=== PATIENT | female | born 1990 | race Caucasian/White ===

== ENCOUNTER → 2016-12-04 | Outpatient (CLI) | payer BC ==
[~2016-12-04] MED LIST: BCPILLS PO; EFF75 PO; FRRS300 PO; PRENTAB26 PO; VENL150C56 PO
== END | disposition home or self-care (01) ==
LOC: C.LABSPEC 17:57
PROVIDERS: ATTEND Obstetrics & Gynecology
DX: Z34.03 Encounter for supervision of normal first pregnancy, third trimester (principal)

== ENCOUNTER 2016-12-29 03:27 | Inpatient (IN) | payer BC ==
[~2016-12-29] VITALS: Ht 175.3 cm; Wt 92.0 kg
[~2016-12-29 03:27] MED LIST changes: -FRRS300 PO; -PRENTAB26 PO
[2016-12-29 05:00] VITALS: BMI 30.0
[2016-12-29] MEDS ORDERED: PRENTAB26 PO (05:05)
[2016-12-29] MEDS ORDERED: LACTATED RINGER'S 1000ML 1,000 ML IV SCH (06:22)
[2016-12-29] MEDS: LACTATED RINGER'S 1000ML 1,000 ML IV PRN ×2 (06:45→08:00)
[2016-12-29 06:58] LABS: HEMATOCRIT 35.4 % (37-47); MEAN CELL VOLUME 83.1 fL (80-100); MEAN CORPUSCULAR HEMOGLOBIN 29.6 pg (25-34); MEAN CORPUSCULAR HGB CONC 35.6 g/dl (32-36); MEAN PLATELET VOLUME 9.2 fL (7.4-10.4); PLATELET COUNT 219 K/uL (130-400); RED BLOOD COUNT 4.26 M/uL (4.2-5.4); WHITE BLOOD COUNT 16.47 K/uL (4.8-10.8)
[2016-12-29] MEDS ORDERED: BUPIVACAINE 0.25% 30 ML VIAL ONE (07:07)
[2016-12-29] MEDS ORDERED: EpHEDrine SULFATE INJ 50 MG/ML AMP ONE (07:07)
[2016-12-29] MEDS ORDERED: FENTANYL CITRATE INJ 50 MCG/1 ML 2 ML VIAL ONE (07:08)
[2016-12-29] MEDS ORDERED: FENTANYL 2MCG/ML ROPIV 1.25MG/ML 100ML BAG EPI ONE (07:08)
[2016-12-29 07:13] VITALS: Ht 175.3 cm; Wt 92.0 kg
[2016-12-29] MEDS ORDERED: LACTATED RINGER'S 1000ML 500 ML IV PRN (08:22)
[2016-12-29] MEDS ORDERED: EpHEDrine SULFATE INJ 50 MG/ML AMP IV PRN (08:30)
[2016-12-29] MEDS ORDERED: NALOXONE HCL INJ 0.4 MG/1 ML VIAL/CARP IV PRN (08:30)
[2016-12-29] MEDS ORDERED: FENTANYL 2MCG/ML ROPIV 1.25MG/ML 100ML BAG EPI PRN (08:30)
[2016-12-29] MEDS ORDERED: OXYTOCIN 30 UNITS/500ML NSS IV ONE (09:22)
[2016-12-29] MEDS ORDERED: NURSING VERBAL MED ORDER ONE (11:45)
[2016-12-29] MEDS ORDERED: MISOPROSTOL 200 MCG TAB ONE (11:49)
[2016-12-29] MEDS ORDERED: BENZOCAINE 20% AER SPR 82.5 GM CAN EXT PRN (12:00)
[2016-12-29] MEDS ORDERED: MISOPROSTOL 200 MCG TAB PR ONE (12:00)
[2016-12-29] MEDS ORDERED: OXYTOCIN 30 UNITS/500ML NSS IV PRN (12:00)
[2016-12-29] MEDS ORDERED: LANOLIN OINT EXT PRN ×2 (12:00)
[2016-12-29] MEDS ORDERED: ACETAMINOPHEN 325 MG TAB PO PRN (12:00)
[2016-12-29] MEDS ORDERED: SUPERCREAM 0.870 % 15GM JAR EXT PRN (12:00)
[2016-12-29] MEDS ORDERED: CEFAZOLIN SOD 2000 MG in DEXTROSE 5% 50ML IV ONE (12:00)
[2016-12-29] MEDS ORDERED: ACETAMINOPHEN/CODEINE 300/30MG TAB PO PRN ×2 (12:00)
--- NOTE | 2016-12-29 12:17 | DELIVERY SUMMARY ---
DATE OF OPERATION: 12/29/2016 DELIVERY NOTE DATE OF DELIVERY: 12/29/2016. The patient is a 26-year-old 1, P0 white female EDC of 12/29/2016 who presented with ruptured membranes at approximately 0130 hours. She progressed in active labor. She received effective epidural analgesia. She progressed to full dilation and pushed effectively over an intact perineum for a viable male infant, loose nuchal cord was reduced on the perineum. Occult prolapsed cord was noted, a loop of cord was presenting after the head. The rest of the infant delivered without difficulty, was placed on the mother's abdomen for further attention. The had vigorous crying and was moving all four limbs. The cord was then clamped and cut, cord blood was obtained. The placenta was not delivering in a timely fashion. It was manually removed and bleeding afterward was controlled with dilute Pitocin. There continued to be some steady bleeding. The uterus was explored twice and clot was removed. There was no retained placental tissue present. The cervix was examined and found to have no cervical tears. A first degree labial laceration on the right was repaired with 3-0 Vicryl. A first degree perineal laceration was also repaired but with 3-0 chromic in the usual fashion. The patient then received Cytotec 800 mcg because the lochia continued to be moderate. The patient remained stable through this time period. Blood pressure was at 120/60, pulse was 86. She is asymptomatic. Bleeding at this point now has been minimal. Blood loss was 700 mL. I attest to the content of the Intraoperative Record and any orders documented therein. Any exceptio ns are noted below.
[2016-12-29] MEDS ORDERED: CARBOPROST TROMETHAMINE 250 MCG/ML AMP IM ONE (13:15)
[2016-12-29] MEDS ORDERED: CARBOPROST TROMETHAMINE 250 MCG/ML AMP ONE (13:22)
--- NOTE | 2016-12-29 13:35 | Anesthesia Procedure Note ---
Anesthesia Epidural Removal Nt Date & Time Dec 29, 2016 at 13:34 Notes Mental Status: alert / awake / arousable, participated in evaluation Nausea / Vomiting: adequately controlled Pain: adequately controlled Airway Patency, RR, SpO2: stable & adequate BP & HR: stable & adequate Hydration State: stable & adequate Neuraxial Anesthesia: was administered Anesthetic Complications: no major complications apparent, pt satisfied with anesthetic care Epidural: removed without complications, with tip intact
[2016-12-29 15:30] VITALS: BP 129/77; PULSE 84; TEMP 36.6
[2016-12-29] MEDS: IBUPROFEN 600 MG TAB PO PRN ×2 (15:46→21:48)
[2016-12-29 18:20] LABS: HEMATOCRIT 28.7 % (37-47)
[2016-12-29] MEDS: DOCUSATE SODIUM 100 MG CAP PO SCH (20:05)
[2016-12-29 20:10] VITALS: BP 118/75; PULSE 85; TEMP 36.8; O2SAT 99
[2016-12-29 23:30] VITALS: BP 116/67; PULSE 88; TEMP 36.9; O2SAT 98
[2016-12-30 04:05] VITALS: BP 132/74; PULSE 87; TEMP 36.7; O2SAT 98
[2016-12-30 06:57] LABS: HEMATOCRIT 26.1 % (37-47)
[2016-12-30 07:41] VITALS: BP 123/74; PULSE 79; TEMP 36.8
[2016-12-30] MEDS: DOCUSATE SODIUM 100 MG CAP PO SCH ×2 (08:30→20:12)
[2016-12-30] MEDS: PRENATAL VITAMIN TAB PO SCH (08:30)
--- NOTE | 2016-12-30 09:08 | Progress Note ---
Subjective Dec 30, 2016. Subjective conversation w/ patient, physical exam Ambulation: ambulating normally Voiding: no voiding problems Passing Gas: Yes Diet Tolerance: Regular Diet Lochia: Small Feeding Type: Breast Feeding Comment: ambulating without difficulty. no lightheadedness or SOB. Review of Systems Constitutional: No chills, No fatigue, No fever, No problem reported, No sweats , No weakness, No weight loss Breast: No breast lump, No breast pain, No change in shape, No nipple discharge , No problem reported, No see HPI Abdomen: No GI bleeding, No constipation, No diarrhea, No nausea, No pain, No problem reported, No vomiting Female : No abnormal vaginal bleeding, No dysuria, No hematuria, No incontinence, No problem reported, No see HPI, No urinary frequency, No vaginal discharge Objective Vital Signs Date Time Temp Pulse Resp B/P Pulse Ox O2 Delivery O2 Flow Rate FiO2 12/30/16 07:41 36.8 79 18 123/74 Room Air 12/30/16 04:05 36.7 87 18 132/74 98 Room Air 12/29/16 23:30 98 Room Air 12/29/16 23:30 36.9 88 18 116/67 98 Room Air 12/29/16 20:10 36.8 85 18 118/75 99 Room Air 12/29/16 15:30 Room Air 12/29/16 15:30 36.6 84 18 129/77 Room Air Physical Exam General Appearance: WELL-APPEARING, NO APPARENT DISTRESS Abdomen: non tender, soft Fundus: Firm, Non-Tender, Relation to Umbilicus (3 below umbilicus) Extremities: no calf tenderness Laboratory Results Last 24 Hours Test 12/29/16 18:12 12/30/16 06:39 Hemoglobin 9.9 g/dL 9.2 g/dL Hematocrit 28.7 % 26.1 % Assessment and Plan Day#: 1 Continue Routine Care: stable post course H&H stable will start iron daily with PNV
[2016-12-30] MEDS: IBUPROFEN 600 MG TAB PO PRN ×3 (09:35→20:12)
[2016-12-30] MEDS: FERROUS SULFATE 325 MG TAB PO SCH (12:23)
[2016-12-30 15:30] VITALS: BP 137/84; PULSE 83; TEMP 36.8
[2016-12-30] MEDS ORDERED: BISACODYL 5 MG TABEC PO SCH (20:00)
[2016-12-30 23:50] VITALS: BP 124/61; PULSE 74; TEMP 36.8; O2SAT 100
[2016-12-31] MEDS ORDERED: FRRS300 PO (06:07)
--- NOTE | 2016-12-31 06:08 | Progress Note ---
Subjective Dec 31, 2016. Subjective conversation w/ patient, physical exam Ambulation: ambulating normally Voiding: no voiding problems Passing Gas: Yes Diet Tolerance: Regular Diet Feeding Type: Breast Feeding Review of Systems Constitutional: No chills, No fatigue, No fever, No problem reported, No sweats , No weakness, No weight loss Objective Vital Signs Date Time Temp Pulse Resp B/P Pulse Ox O2 Delivery O2 Flow Rate FiO2 12/30/16 23:50 36.8 74 16 124/61 100 Room Air 12/30/16 23:50 Room Air 12/30/16 15:30 Room Air 12/30/16 15:30 36.8 83 20 137/84 Room Air 12/30/16 08:30 Room Air 12/30/16 07:41 36.8 79 18 123/74 Room Air Physical Exam General Appearance: WELL-APPEARING, NO APPARENT DISTRESS Abdomen: non tender, soft Fundus: Firm, Non-Tender, Relation to Umbilicus (2 below U) Extremities: no calf tenderness Laboratory Results Last 24 Hours Test 12/30/16 06:39 Hemoglobin 9.2 g/dL Hematocrit 26.1 % Assessment and Plan Day#: 2 Continue Routine Care: stable course s/p ppx hemorrhage will discharge to home follow up in 6 weeks continue iron supplement for 6 weeks
--- NOTE | 2016-12-31 06:10 | Discharge Instructions ---
Discharge Instructions Admission Reason for Admission: 40 Weeks Gestation Of Discharge Discharge Diagnosis / Problem: recovery from regular delivery Discharge Goals Goal(s): Routine recovery after delivery Medications Continue Dispensed Medications: supercream, dermaplast, tucks, lansinoh Activity Recommendations Activity Limitations: per Instructions/Follow-up section . Instructions / Follow-Up Instructions / Follow-Up ACTIVITY RECOMMENDATIONS: * Gradual return to full activity over the next 2-3 weeks. * No lifting - nothing heavier than baby over the next 2-3 weeks. * Do not engage in vigorous exercise, sexual activity or sports until cleared by your physician. * Do not drive or operate any motorized equipment until cleared by your physician. * You may shower/bathe daily. MEDICATIONS: For discomfort or pain, you may use Acetaminophen (Tylenol), Ibuprofen (Advil), or Naproxen (Aleve) following the package directions. For constipation you may use Colace following the package directions. BREAST CARE: If you are not breast feeding: * Wear a supportive bra 24 hours a day for one to two weeks. * Avoid stimulating your breasts and nipples as much as possible during the first few weeks after delivery. * When taking a shower, have the warm water hit your back, not breasts. * When your breasts feel full, apply ice packs. Usually three to four times a day helps ease the discomfort. * Take a mild pain medication (Tylenol / Motrin) when you are uncomfortable. If breast feeding: * Use breast milk to lubricate nipples. Lansinoh cream may be used for sore nipples. You do not need to remove cream prior to breast feeding. If using a different brand of cream, check the label for directions regarding removal of cream prior to nursing. * Wear a supportive bra. * If having problems with breasts or breast feeding, call a portfolio consultant or your health care provider. EPISIOTOMY CARE: After delivery, if you have an episiotomy (stitches), the following steps will ease discomfort and aid healing. * For the first 24 hours after delivery, place ice packs next to your episiotomy to help reduce swelling. * After the first 24 hour-period, sitz baths, either portable or in the tub, are suggested. A shower with a shower arm sprayed over the episiotomy may be comforting. * Dalia care should be done after each voiding and bowel movement. Squirt warm water from a plastic bottle over the perineum (region of the body between the anus and urinary opening) and pat dry. * Use Dermoplast to ease discomfort. Shake container. [place] directly over the episiotomy. Place a Tucks on a clean sanitary pad next to your episiotomy. SPECIAL CARE INSTRUCTIONS: When you are discharged from the hospital, it is important for you to follow the instructions listed below: * During the first week at home, you should be able to care for yourself and your baby. In addition, the usual light household activities are encouraged. * Limit your activities to the way you feel. Do not try to clean the house or move furniture. Be sensible. * If you actively engage in sports and have done so up until the time of your delivery, you may resume these activities as soon as you feel able. This may take up to one month or even longer. Use good judgment. * Continue to take your vitamins for at least six weeks after the of your baby. * Your diet need not be limited unless you were on a special diet before your delivery. Breast-feeding mothers need around 2500 calories per day and at least 64-80 ounces of fluid per day (8 to 10 glasses). * You should eat foods from the four major food groups. Crash diets or fad diets are to be avoided. Eating lean meats, fresh fruits and vegetables, low-fat dairy products, high fiber foods and a regular exercise program, will help you get back to your pre- weight without putting your health at risk. * Constipation is sometimes a problem after delivery. Take a mild laxative as needed. If breast feeding, Milk of Magnesia is acceptable to use. You may use a suppository or Fleets enema if no episiotomy. * A daily shower or tub bath is suggested. Be sure to thoroughly and gently dry the perineum. * A bloody vaginal discharge will usually continue until around four weeks post . A small amount of bleeding may continue for as long as six weeks. Vaginal discharge changes from the bright red bleeding after delivery to pink then brownish and finally yellowish-pink before becoming white and disappearing. * Bleeding may increase with activity. Your first period may come in 4-8 weeks. If you are breast feeding, your period may be delayed even longer. * Leming (sex) can begin whenever both you and your partner feel comfortable and do not have any form of genital infection. It is recommended that you wait at least six weeks for internal and external healing to occur. If you have questions, please talk to your health care practitioner. A condom should be used to prevent infection and . * Foreplay, gentle intercourse and lubrication is very important the first several times to prevent pain. A water-based lubricant such as K-Y jelly or Astroglide may be used. * If you have RH negative blood and your baby is RH positive, you will receive RHOGAM by injection prior to discharge. The nurse will give you a card to keep with you that has the date and place that you received RHOGAM after delivery. * During your care, you had a Rubella screen done to check for the presence of rubella antibodies in your blood. If your test was negative, you will receive a Rubella vaccine prior to discharge. This vaccine may cause a fever, soreness at the injection site and flu-like symptoms. If these symptoms persist, notify your health care practitioner. is not advised for one month after a Rubella vaccine. * Verbalizes understanding of car seat law as reviewed with patient nursing. * Car Seat hand-out given and reviewed with patient by nursing. * Shaken baby information reviewed with patient by nursing. Call you doctor if: * Heavy bleeding (saturating several pads an hour) or passing clots the size of your fist. * A fever >101 degrees F (38.3 degrees C) on two occasions four hours apart and /or chills. * Unusual pain in the pelvic or vaginal areas. * "Baby Blues" lasting longer than two weeks. If you have any questions or concerns, call your health care practitioner at . FOLLOW UP VISIT: * Please call the office at to schedule a 6 week examination. It is important you keep this appointment. It is important for you to make arrangements for either yearly or twice yearly check-ups thereafter. Current Hospital Diet Patient's current hospital diet: Regular OB Diet Discharge Diet Recommended Diet: Regular OB Diet Pending Studies Studies pending at discharge: no Medical Emergencies . Who to Call and When: Medical Emergencies: If at any time you feel your situation is an emergency, please call 911 immediately. . Non-Emergent Contact Non-Emergency issues call your: Kitchen Clerk . . "Provider Documentation" section prepared by Tamara Sandoval. VTE Core Measure Inpt VTE Proph given/why not?: Treatment not indicated
[2016-12-31 08:30] VITALS: BP 144/77; PULSE 74; TEMP 36.8
[2016-12-31] MEDS: DOCUSATE SODIUM 100 MG CAP PO SCH (08:33)
[2016-12-31] MEDS: PRENATAL VITAMIN TAB PO SCH (08:33)
[2016-12-31] MEDS: FERROUS SULFATE 325 MG TAB PO SCH (08:33)
[2016-12-31] MEDS: IBUPROFEN 600 MG TAB PO PRN (09:23)
[2016-12-31 15:14] VITALS: BP_DIAS 77; PULSE 74; TEMP 36.8
--- NOTE | 2017-01-01 14:09 | EDITING REQUIRED CODING QUERY ---
ANEMIA To promote full compliance with coding requirements relating to patient care, physician participation is requested in all cases of urologist uncertainty. Please assist us with the question(s) below: Coding Question(s): The record reflects the following clinical findings: The patient had a hemorrhage with Hemoglobin 9.2 g/dL and Hematocrit 26.1 % levels. She was started on iron supplementation. If these findings are indicative of anemia, please specify the known or suspected type by placing an "X" within the parenthesis (x). If other, please document type. Examples are: (X ) Acute blood loss anemia ( ) Acute Postoperative blood loss anemia ( ) Acute postoperative anemia due to dilutional fluids ( ) Chronic blood loss anemia ( ) Anemia of chronic disease ( ) Aplastic anemia ( ) Anemia due to renal disease ( ) Anemia in neoplastic disease ( ) Iron deficient anemia ( ) Anemia, unspecified or other ( ) Other: (please specify) ( ) Unable to determine Thank you for your time, DEVYN Jade, MODERN GREEK STUDIES PROFESSOR
== END 2016-12-31 13:00 | disposition home or self-care (01) | DRG 774 ==
LOC: C.LD 03:27 → C.OPB 03:27 → C.LD 06:23 → C.OPB 06:28 → C.OBG 15:13
PROVIDERS: ADMIT Obstetrics & Gynecology; ATTEND Obstetrics & Gynecology
PROC: 0HQ9XZZ Repair Perineum Skin, External Approach (ICD-10-PCS; principal; 2016-12-29)
PROC: 10E0XZZ Delivery of Products of Conception, External Approach (ICD-10-PCS; principal; 2016-12-29)
PROC: 0UQMXZZ Repair Vulva, External Approach (ICD-10-PCS; principal; 2016-12-29)
DX: O69.0XX0 Labor and delivery complicated by prolapse of cord, not applicable or unspecified (principal); O72.1 Other immediate postpartum hemorrhage; D62 Acute posthemorrhagic anemia; O90.81 Anemia of the puerperium; O69.81X0 Labor and delivery complicated by cord around neck, without compression, not applicable or unspecified; O70.0 First degree perineal laceration during delivery; Z37.0 Single live birth; Z3A.40 40 weeks gestation of pregnancy

== ENCOUNTER → 2017-02-12 | Outpatient (CLI) | payer BC ==
[~2017-02-12] MED LIST changes: -BCPILLS PO; -EFF75 PO; +FRRS300 PO; +PRENTAB26 PO; -VENL150C56 PO
== END | disposition home or self-care (01) ==
LOC: C.PAPS 09:52
PROVIDERS: ATTEND Obstetrics & Gynecology
DX: Z12.4 Encounter for screening for malignant neoplasm of cervix (principal)

== ENCOUNTER → 2018-02-13 | Outpatient (CLI) | payer OTHER | END | disposition home or self-care (01) | LOC: C.PAPS 16:29 | PROVIDERS: ATTEND Obstetrics & Gynecology | DX: Z12.4 Encounter for screening for malignant neoplasm of cervix (principal) ==

== ENCOUNTER 2024-05-27 07:27 | Inpatient (IN) ==
[2024-05-27] MEDS ORDERED: OXYTOCIN 30 UNITS/NSS 30 UNITS/500 ML BAG IV PRN ×2 (08:43→14:48)
[2024-05-27] MEDS ORDERED: LIDOCAINE 1% LOCAL 20 ML VIAL INFIL PRN (08:43)
[2024-05-27] MEDS ORDERED: CALCIUM CARBONATE 500 MG CHEWABLE TAB PO PRN (08:43)
[2024-05-27] MEDS: LACTATED RINGER'S 1,000 ML IV PRN (08:54)
[2024-05-27] MEDS: OXYTOCIN 30 UNITS/NSS 30 UNITS/500 ML BAG IV PRN (08:55)
--- NOTE | 2024-05-27 09:19 | History & Physical Report ---
Date of Service May 27, 2024 Assessment & Plan (1) Encounter for induction of labor: (2) Post-dates : Plan admit, iv, labs. arom done, meconium fluid, explained to couple. fhts categ 1. start pit. Admission and Anticipated Discharge Date Admission Date: May 27, 2024 History of Present Illness Chief Complaint: induction Primary Care Provider: NO PCP 34yo at 40+wks karan presents to LD with cc of planned postdates induction. She is not feeling regular ctx. No rom, no vb. +FM. PNC c/b 1. postdates PNL rhpos, ri, gbs neg OBH: svdx 1 GYNH: nl paps no stds. Allergies Allergy/AdvReac Type Severity Reaction Status Date / Time No Known Drug Allergies Allergy Verified 05/26/24 13:56 Home Medications Medication Instructions Recorded Confirmed Type 21-iron fu-folic acid PO 10/04/23 05/26/24 History [ Complete] sertraline 100 mg tablet 100 mg PO 1XD 05/27/24 05/27/24 History Patient History Medical History Varicella vaccination Migraine Anxiety Surgical History S/P wisdom tooth extraction Family History (Updated 10/04/23 @ 09:51 by Salima Lim) Father Tuberculosis Denies family history of Ovarian cancer Breast cancer Colorectal cancer Social History (Updated 10/04/23 @ 09:52 by Salima Lim) Smoking Status: Former smoker Age Started Using Tobacco: 18; Cigarettes Per Day: 10; Smoking End Date: quit smoking cigarettes two years ago. stopped vaping when she got ; Do You Dip or Chew Tobacco: No; Hx Alcohol Use: No Hx Substance Use: No Preferred Language: Lao Monument Letterer Required: No Beliefs That Will Affect Care: None marital status: marital status details: Oniel Nelson (40) [phone] Current Living Situation: Spouse Current Living Situation Comment: lives with spouse, son, step son, dogs current occupational status: employed current occupation: [employer] Other Information That Helps Us Care for You: No Feels Safe at Home: No Is there a partner from a previous relationship who is making you feel unsafe now?: No Any Concerns about Your Family Situation: No Would You Like to Speak to Someone About Your Situation: No Safety Concerns: Feels Safe At This Time Assistive Devices: None Review of Systems as per Subjective / HPI Physical Exam Constitutional: WD/WN, vitals as above Respiratory: normal respiratory effort, lungs clear to auscultation Cardiovascular: Rate/Rhythm: regular rate and regular rhythm Gastrointestinal (Abdomen): soft gravid nt efw 7-8# Musculoskeletal: no edema nontender calves Neurologic: grossly normal Psychiatric: A+Ox3, euthymic affect Genitourinary: Manual OB Exam: + cervical dilation (3), + cervical effacement 50% and + station (mid soft) -2 OB Exam Monitor Tracing: + external FHT monitor used, + external uterine monitor used (irreg), + category I and + normal FHT variability Results & Data Vital Signs (Past 12 Hours) Vital Signs Temp Pulse Resp BP 05/27/24 08:37 81 05/27/24 08:37 132/77 05/27/24 08:00 98.2 F 18 05/27/24 07:38 84 145/78 H 05/27/24 07:34 82 142/76 H 05/27/24 07:32 18 05/27/24 07:32 98.2 F 18 Coding Level of Care Code None Diagnoses Encounter for induction of labor Z34.90 Post-dates O48.0
[2024-05-27 09:31] LABS: Hemoglobin 12.1 g/dl (12.0-16.0); Mean Corpuscular Hemoglobin 26.7 pg (25.0-34.0); Mean Corpuscular Hgb Conc 33.6 g/dL (32.0-36.0); Mean Corpuscular Volume 79.5 fL (80.0-100.0); Mean Platelet Volume 9.4 fL (9.4-12.4); Platelet Count 250 K/uL (130-400); RDW Coefficient of Variation 14.8 % (11.5-14.5); RDW Standard Deviation 42.4 fL (36.4-46.3); Red Blood Count 4.53 M/uL (4.20-5.40); White Blood Count 10.89 K/ul (4.8-10.8)
[2024-05-27] MEDS ORDERED: fentaNYL citrate PF 100 MCG/2 ML VIAL EPI STA (12:59)
[2024-05-27] MEDS ORDERED: NALBUPHINE HCL 5 MG in SYRINGE 0 ML IV PRN (12:59)
[2024-05-27] MEDS ORDERED: NALOXONE HCL 1 MG in SODIUM CHLORIDE 0.9% 1,000 ML IV PRN (12:59)
[2024-05-27] MEDS ORDERED: SODIUM CHLORIDE 0.9% PF INJ 10 ML VIAL EPI PRN (12:59)
[2024-05-27] MEDS ORDERED: diphenhydrAMINE 50 MG/ML VIAL IV PRN (12:59)
[2024-05-27] MEDS ORDERED: ePHEDrine sulfate 50 MG/ML AMP IV PRN (12:59)
[2024-05-27] MEDS ORDERED: NALOXONE HCL 0.4 MG/1 ML VIAL/CARP IV PRN (12:59)
[2024-05-27] MEDS ORDERED: LIDOCAINE 2% MPF LOCAL 5 ML VIAL EPI PRN (12:59)
[2024-05-27] MEDS ORDERED: ROPIVACAINE 0.5% PF 5 MG/ML 20 ML VIAL EPI PRN (12:59)
[2024-05-27] MEDS ORDERED: BUPIVACAINE 0.25% PF 30 ML VIAL EPI STA (12:59)
--- NOTE | 2024-05-27 13:02 | Anesthesiology Consultation ---
Date of Service May 27, 2024 Assessment & Plan (1) Encounter for pre-operative examination: Chart Review Chart Review: Patient NOT seen in Pre Admission Testing and Acceptable Risk for Labor Epidural Consults Requested none History Height/Weight Height: 5 ft 10 in Weight: 102.693 kg Allergies Allergy/AdvReac Type Severity Reaction Status Date / Time No Known Drug Allergies Allergy Verified 05/26/24 13:56 Medications Home Medications Medication Instructions Recorded Confirmed Last Taken 21-iron fu-folic acid PO 10/04/23 05/26/24 05/26/24 20:00 [ Complete] sertraline 100 mg tablet 100 mg PO 1XD 05/27/24 05/27/24 05/26/24 20:00 Active Medications Generic Name Dose Route Start Last Admin Trade Name Freq PRN Reason Stop Dose Admin Oxytocin 30 units in 500 mls @ 5 mls/hr 05/27/24 08:43 05/27/24 10:00 Pitocin 30 Units/Nss IV 05/29/24 08:42 0.3 units/hr .Q24H PRN 5 mls/hr Labor Induction/Augmentation Titration Protocol 0.3 UNITS/HR Lactated Ringer's 1,000 mls @ 125 mls/hr 05/27/24 08:43 05/27/24 10:17 Lr IV 05/29/24 08:42 999 mls/hr .Q8H PRN Infusion L&D Protocol Protocol Past Medical History Medical History (Updated 05/27/24 @ 13:01 by Betito Montelongo MD) Encounter for pre-operative examination Varicella vaccination Migraine Anxiety Exercise / Class Metabolic Activity II 4-5 Yardwork/Stairs/Walk up hill Past Family History Family History (Updated 10/04/23 @ 09:51 by Salima Lim) Father Tuberculosis Denies family history of Ovarian cancer Breast cancer Colorectal cancer Past Surgical History Surgical History S/P wisdom tooth extraction Past Anesthesia History No Hx of Anesthesia Complications and No Family Hx of Anesthesia Complications History of PONV No Hx of PONV and No Hx of Motion Sickness Social History Smoking Status: Former smoker tobacco type: cigarettes Smoking cigarettes per day: 10 Do You Dip or Chew Tobacco: No Smoking End Date: quit smoking cigarettes two years ago. stopped vaping when she got Hx Alcohol Use: No Hx Substance Use: No Physical Exam Vital Signs Last Vital Signs Temp 36.8 C 05/27/24 12:00 Pulse 81 05/27/24 13:36 Resp 18 05/27/24 12:00 BP 137/74 05/27/24 13:36 Pulse Ox 87 L 05/27/24 13:36 Testing Laboratory Results 05/27/24 08:58
[2024-05-27] MEDS: fentANYL 2 MCG/ML BUPIVacaine 0.125%-NSS 100ML BAG EPI PRN (13:44)
[2024-05-27] MEDS: BUPIVACAINE 0.25% PF 30 ML VIAL EPI PRN (13:45)
[2024-05-27] MEDS: fentaNYL citrate PF 100 MCG/2 ML VIAL EPI PRN (13:45)
[2024-05-27] MEDS: LIDOCAINE 2%/EPINEPHRINE 1:200,000 20 ML PF EPI STA (13:45)
--- NOTE | 2024-05-27 14:22 | Delivery Summary ---
Vaginal Delivery Summary Date of Service May 27, 2024 Vaginal Delivery Summary and 2nd Degree LAC The patient dilated to complete and pushed to deliver a viable female Apgars 8 and 9 via over 2nd degree perineal laceration. Mouth and nose bulb suctioned at perineum. Loose nuchal cord x 1 easily reduced. Shoulders and body delivered with ease. Infant cried at but then not as vigorous and so cord clamped and infant to maternal abdomen where the cord was then doubly clamped and cut and nursing drying and stimulating baby. Placenta delivered spontaneously and intact, three-vessel cord. Hemostasis achieved with dilute pitocin and uterine massage. Laceration repaired with 3-0 vicryl in usual fashion. Cervix and sulci intact. QBL 114 cc. Mother and baby stable in recovery. [facility] [place] Vaginal Delivery Charge Delivery Type Details: and 2nd Degree LAC
[2024-05-27] MEDS ORDERED: ACETAMINOPHEN 325 MG TAB PO PRN (14:48)
[2024-05-27] MEDS ORDERED: HYDROCORTISONE ACETATE 25 MG SUPP PR PRN (14:48)
[2024-05-27] MEDS ORDERED: oxyCODONE/ACETAMINOPHEN 5mg/325mg TAB PO PRN (14:48)
[2024-05-27] MEDS ORDERED: BENZOCAINE 20% SPRY 85 APPLN/85 GM CAN EXT PRN (14:48)
[2024-05-27] MEDS: ePHEDrine sulfate 50 MG/ML AMP ONE (14:54)
[2024-05-27] MEDS: fentANYL 2 MCG/ML BUPIVacaine 0.125%-NSS 100ML BAG ONE (14:54)
[2024-05-27] MEDS: SODIUM CHLORIDE 0.9% PF INJ 10 ML VIAL ONE (14:54)
[2024-05-27] MEDS: fentaNYL citrate PF 100 MCG/2 ML VIAL ONE (14:54)
[2024-05-27] MEDS: LIDOCAINE 2%/EPINEPHRINE 1:200,000 20 ML PF ONE (14:55)
[2024-05-27] MEDS: BUPIVACAINE 0.25% PF 30 ML VIAL ONE (14:55)
[2024-05-27] MEDS: SODIUM CHLORIDE 0.9% PF INJ 10 ML VIAL EPI STA (14:56)
[2024-05-27] MEDS ORDERED: SERTRALINE HCL 100 MG TABLET PO SCH (15:00)
[2024-05-27] MEDS: DIPHTHER/TETAN/PERTUS Vaccine (Tdap, Adol/Adult) 0.5mL IM ONE (15:00)
[2024-05-27] MEDS: OXYTOCIN 20 UNITS/LR 1,002 ML IV SCH (15:07)
[2024-05-27] MEDS ORDERED: Nursing to Pharmacy Communication SCH (16:15)
--- NOTE | 2024-05-27 16:23 | Anesthesia Procedure Note ---
Date of Service May 27, 2024 Anesthesia Post Epidural Note Vital Signs Vital Signs: Temp Pulse Resp BP Pulse Ox 36.8 C 74 18 129/63 100 05/27/24 12:00 05/27/24 16:14 05/27/24 12:00 05/27/24 16:14 05/27/24 16:14 Pain Intensity Bilateral Lower Anterior Abdomen: Pain Intensity: 4 Notes Mental Status: alert / awake / arousable and participated in evaluation Patient Amnestic to Procedure: No Nausea / Vomiting: adequately controlled Pain: adequately controlled Airway Patency, RR, SpO2: stable & adequate BP & HR: stable & adequate Hydration State: stable & adequate Neuraxial Anesthesia: was administered and sensory block is resolving Anesthetic Complications: no major complications apparent and Pt Satisfied with anesthetic care Epidural: Removed without complications and With tip intact
[2024-05-27] MEDS: IBUPROFEN 600 MG TAB PO PRN (19:04)
[2024-05-27] MEDS: DOCUSATE SODIUM 100 MG CAP PO SCH (20:05)
[2024-05-27] MEDS: SERTRALINE HCL 100 MG TABLET PO SCH (20:06)
--- NOTE | 2024-05-28 07:06 | Obstetrical Progress Note ---
Date of Service May 28, 2024 Assessment & Plan (1) care following vaginal delivery: Plan stable , doing well. wants to go home later today. instructions reviewed, f/u 6 wk pp check. breast/bottle, rhpos, ri. Day #:: 1 Subjective Ambulation: ambulating normally Voiding: no voiding problems Diet Tolerance:: regular diet Lochia:: Small Feeding Type:: bottle feeding pt pumping and bottle feeding until milk comes in, plans to nurse. doing well today and wants to go home later. Constitutional: + as per Subjective / HPI Physical Exam Constitutional WD/WN, vitals as above Respiratory normal respiratory effort, lungs clear to auscultation Cardiovascular Rate/Rhythm: regular rate and regular rhythm Gastrointestinal (Abdomen) Inspection/Auscultation: abdomen normal to inspection Percussion/Palpation: abdomen soft Fundus firm 1cm down Musculoskeletal nt calves tr edema Neurologic grossly normal Psychiatric A+Ox3, euthymic affect Results & Data Vital Signs (Past 12 Hours) Vital Signs Temp Pulse Resp BP Pulse Ox O2 Del Method 05/28/24 04:10 98.1 F 75 18 127/76 98 Room Air 05/28/24 00:20 98.2 F 84 16 121/73 97 Room Air 05/27/24 20:00 98.4 F 85 18 127/78 98 Room Air
[2024-05-28] MEDS: PRENATAL VITAMIN 1 TAB PO SCH (07:35)
[2024-05-28] MEDS ORDERED: bisacodyL 5 MG TABEC PO SCH (20:00)
--- NOTE | 2024-05-29 05:08 | Coding Query ---
CODING QUERY To promote full compliance with coding requirements relating to patient care, provider participation is requested in all cases of retail warehouse associate uncertainty. Please assist us with the question(s) below: Coding Question(s): please document weeks of gestation Physician's Response(s): 40+ Thank you Heena Hale Principal Diagnosis: "that condition established after study, to be chiefly responsible for occasioning the admission of the patient to the hospital for care." Co-Existing Principal Diagnosis: "when two or more diagnoses equally meet the criteria for principal diagnosis as determined by the circumstances of admission, diagnostic work up, and/or therapy provided, and the Alphabetic Index, Tabular List, or another coding guideline does not provide sequencing direction, any one of the diagnoses may be sequenced first." "When the physician has documented what appears to be a current diagnosis in the body of the record, but has not included the diagnosis in the final diagnostic statement, the physician should be asked whether the diagnosis should be added." (Source [facility]oding [facility] 2 QTR90. p3-4) NAILA
== END 2024-05-28 15:15 | disposition home or self-care (01) | DRG 807 ==
LOC: 4S1 07:27 → 4E2 21:24